=== PATIENT | male | born 1935 | race Caucasian/White ===

== ENCOUNTER → 2017-03-30 | Outpatient (CLI) | payer MEDICARE ==
[~2017-03-30] VITALS: Ht 180.3 cm; Wt 84.7 kg
[~2017-03-30] MED LIST: ALLO300T2 PO; ASPI-110 PO; CARV6.252 PO; CHLORHEXIDINE GLUCONATE 2 % 1 PACK (2 CLOTHS) TOPICAL PRN; FURO40TA PO; GLIP10TA6 PO; INSULIN HUMAN REGULAR 1,000 UNITS/10 ML VIAL SQ PRN; LACTATED RINGER'S 1000 ML IV PRN; METF1000 PO; METF500T PO; METOPROLOL TARTRATE 25 MG TAB PO PRN; NAPR220T95 PO; OMEP20TA PO; POTA-163 PO; POVIDONE IODINE 5% (ANTISEPSIS KIT) 4 APPLICATIONS EACH NARE PRN; PROPOFOL 200 MG/20 ML AMP IV ONE; RAMI5CAP PO; SIMV40TA PO; SODIUM CHLORID 0.9% 500 ML IV PRN; TRAD5TAB PO; TYLETAB34 PO
[2017-03-30 08:59] VITALS: BP 159/69; PULSE 69; RESP 18; TEMP 98; O2SAT 98
[2017-03-30 11:24] VITALS: TEMP 98.7
--- NOTE | 2017-03-30 11:31 | GIPROC ---
[facility] [address] [facility]. [facility], [id number] COLONOSCOPY PROCEDURE REPORT EXAM DATE: 03/30/2017 PATIENT NAME: Wayne Knight MR #: [id number] BIRTHDATE: 1935 ENDOSCOPIST: Mica William MD ORDER #: [id number] AGRICULTURAL PURCHASING AGENT: Juanito Castellon and Christine Yates STATUS: outpatient INDICATIONS: The patient is a 81 yr old male here for a colonoscopy due to history of polyps PROCEDURE PERFORMED: Colonoscopy with polypectomy Colonoscopy with ablation MEDICATIONS: None and Per Anesthesia. PREP QUALITY: fair PREP TYPE:GoLytely ESTIMATED BLOOD LOSS: None CONSENT: The patient understands the risks and benefits of the procedure and understands that these risks include, but are not limited to: sedation, allergic reaction, infection, perforation and/or bleeding. Alternative means of evaluation and treatment include, among others: physical exam, x-rays, and/or surgical intervention. The patient elects to proceed with this endoscopic procedure. medical equipment was checked for proper function. Hand hygiene and appropriate measures for infection prevention was taken. After the risks, benefits and alternatives of the procedure were thoroughly explained, Informed consent was verified, confirmed and timeout was successfully executed by the treatment team. A digital exam was performed and revealed hemorrhoids The Pentax [id number] and [id number] endoscope was introduced through the anus and advanced to the cecum, which was identified by both the appendix and ileocecal valve. The instrument was then slowly withdrawn as the colon was fully examined. COLON FINDINGS: Diverticulosis sigmoid,descending polyp sessile midtransverse -8 mm-hot snare polypectomy with removal, ablation of nase using balltip old tattoo in cecum. Retroflexed views revealed internal hemorrhoids and Retroflexed views revealed small internal hemorrhoids The scope was then completely withdrawn from the patient and the procedure terminated. PROCEDURE WITHDRAWAL TIME:13minutes ADVERSE EVENTS: There were no complications. IMPRESSIONS: 1. Diverticulosis sigmoid,descending polyp sessile midtransverse -8 mm-hot snare polypectomy with removal, ablation of nase using balltip old tattoo in cecum 2. Retroflexed views revealed internal hemorrhoids 3. Retroflexed views revealed small internal hemorrhoids 4. Was performed 5. Revealed hemorrhoids RECOMMENDATIONS: 1. Await biopsy results. Biopsy results will not be ready for 7-10 days. If you don't hear from us in two weeks, call our office for results. 2. Benefiber 2 tsp daily 3. Probiotics from any [facility] or health food store 4. Yearly rectal exams RECALL: Colonoscopy, pending biopsy results Mica William MD eSigned: Mica William MD 03/30/2017 11:31 AM cc: Nupur Camargo M.D. PATIENT NAME: Wayne Knight MR#: [id number]
[2017-03-30 11:45] VITALS: BP 114/58; PULSE 70; RESP 18; O2SAT 97
--- NOTE | 2017-03-30 16:39 | EKG ---
Date Performed: 03/30/2017 Time Performed: 08:40:26 PTAGE: 81 years EKG: ATRIAL FIBRILLATION RIGHT BUNDLE BRANCH BLOCK MODERATE T-WAVE ABNORMALITY, CONSIDER INFERIO R ISCHEMIA ABNORMAL ECG Compared to PREVIOUS TRACING , the patient is now in atrial fibrillation. PREVIOUS TRACIN 6 06.20 DOCTOR: Jamey Ramos Interpretating Date/Time 03/30/2017 16:39:01
== END ==
LOC: HEND 08:07
PROVIDERS: ATTEND Internal Medicine Gastroenterology
DX: Z86.010 Personal history of colon polyps (principal); D12.3 Benign neoplasm of transverse colon; K57.30 Diverticulosis of large intestine without perforation or abscess without bleeding; K64.8 Other hemorrhoids; I25.2 Old myocardial infarction; D64.9 Anemia, unspecified; I50.9 Heart failure, unspecified; E11.21 Type 2 diabetes mellitus with diabetic nephropathy; I11.0 Hypertensive heart disease with heart failure; E78.5 Hyperlipidemia, unspecified; D69.6 Thrombocytopenia, unspecified; M43.6 Torticollis; K59.00 Constipation, unspecified; Z01.810 Encounter for preprocedural cardiovascular examination; Z95.810 Presence of automatic (implantable) cardiac defibrillator
CPT/HCPCS: 45385; 88305; 93005; J7120